=== PATIENT | female | born 1985 | race African-American/Black ===

== ENCOUNTER 2018-04-05 23:48 | Emergency (ER) | payer MEDICAID ==
[~2018-04-05] VITALS: Ht 167.6 cm; Wt 60.3 kg
--- NOTE | 2018-04-06 00:15 | NUR ---
PT [facility] C/O LEFT RIB PAIN X1. PT DENIES TRAUMA. PT IS AAOX4 RESPIRATIONS EVEN AND UNLABORED. VITAL SIGNS STABLE. NAD NOTED. PT PLACED ON MONITOR.
--- NOTE | 2018-04-06 01:13 | NUR ---
RADIOLOGIST AT BEDSIDE FOR XRAY
[2018-04-06] MEDS ORDERED: IBUPROFEN 400 MG TABLET PO ONE (01:30)
[2018-04-06] MEDS ORDERED: IBUPROFEN 400 MG TABLET ONE (01:35)
[2018-04-06 01:39] VITALS: BP 98/51
== END 2018-04-06 02:12 | disposition home or self-care (01) ==
LOC: ER 23:50
DX: M94.0 Chondrocostal junction syndrome [Tietze] (principal)
CPT/HCPCS: 71045-TC; A4606; Z7610

== ENCOUNTER → 2018-05-18 | Emergency (ER) | payer MEDICAID ==
[~2018-05-18] VITALS: Ht 167.6 cm; Wt 63.5 kg
[2018-05-18 15:44] VITALS: BP 106/62
--- NOTE | 2018-05-18 16:01 | NUR ---
PT WALKED INTO EMERGENCY ROOM WITH C/C OF DRY NOSE AND CONGESTION VSS TEMPERATURE 98.9 SPEAKING IN CLEAR SENTENCES UNPRESSURED ALERT WITH ORIENTATION X 4 ACCOMPANIED BY DAUGHTER
== END | disposition home or self-care (01) ==
LOC: ER 15:48
DX: J20.9 Acute bronchitis, unspecified (principal); R09.81 Nasal congestion; F17.200 Nicotine dependence, unspecified, uncomplicated
CPT/HCPCS: 71045; 99283; A4606; Z7610